=== PATIENT | female | born 1995 | race Asian ===

== ENCOUNTER 2017-10-23 07:33 | Emergency (ER) | END 2017-10-23 11:13 | disposition left against medical advice (07) ==

== ENCOUNTER 2019-04-25 22:46 | Emergency (ER) | payer BC ==
[~2019-04-25] VITALS: Ht 160 cm; Wt 58.6 kg
[~2019-04-25 22:46] MED LIST: CYCL10TA7 PO; NAPR-985 PO; SUMA50TA3 PO; TRAM50TA2 PO
[2019-04-25 22:51] VITALS: Ht 160 cm; Wt 58.6 kg
[2019-04-25] MEDS ORDERED: IOHEXOL 100 ML ONE (23:34)
[2019-04-25] MEDS ORDERED: SOD CHLORIDE 0.9% 100 ML ONE (23:34)
[2019-04-26] MEDS ORDERED: SUMATRIPTAN 50 MG TAB PO ONE (01:00)
[2019-04-26 01:37] VITALS: BP 122/82; PULSE 75; RESP 20
== END 2019-04-26 01:38 | disposition home or self-care (01) ==
LOC: E/R 22:46
DX: E04.1 Nontoxic single thyroid nodule (principal)
CPT/HCPCS: 36415; 70450; 70496; 70498; 80053; 84484; 84703; 85025; 85610; 85730; 99285; Q9967